=== PATIENT | female | born 2000 | race Caucasian/White ===

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

== ENCOUNTER → 2019-01-12 10:20 | Outpatient (CLI) | payer OTHER, SELFPAY ==
[2019-01-12 12:32] LABS: Internal QC Validated? YES +Cl - CLEAR BKGD; Pregnancy, Urine Negative Negative
== END ==
PROVIDERS: Family Provider Family Medicine; PCP Family Medicine; Referring Provider Physician Assistant Medical; Visit Provider Physician Assistant Medical
DX: L70.0 Acne vulgaris (principal); Z79.899 Other long term (current) drug therapy
CPT/HCPCS: 81025

== ENCOUNTER → 2019-02-23 11:03 | Outpatient (CLI) | payer OTHER, SELFPAY ==
[2019-02-23 12:43] LABS: Internal QC Validated? YES +Cl - CLEAR BKGD; Pregnancy, Urine Negative Negative
== END ==
PROVIDERS: Family Provider Family Medicine; PCP Family Medicine; Referring Provider Physician Assistant Medical; Visit Provider Physician Assistant Medical
DX: L70.0 Acne vulgaris (principal)
CPT/HCPCS: 81025

== ENCOUNTER → 2022-10-18 | Outpatient (CLI) | payer OTHER, SELFPAY ==
[2022-10-21 11:08] LABS: Chlamydia By Nucleic Acid AMP Negative (Negative); Gonococcus By Nucleic Acid AMP Negative (Negative)
[2022-10-23 11:28] LABS: HPV Reflexed? YES, CHARGE PATIENT
== END | disposition home or self-care (01) ==
PROVIDERS: PCP Family Medicine; Referring Provider Nurse Practitioner Women's Health; Visit Provider Nurse Practitioner Women's Health
DX: Z12.4 Encounter for screening for malignant neoplasm of cervix (principal); Z11.3 Encounter for screening for infections with a predominantly sexual mode of transmission
CPT/HCPCS: 87491; 87591; 87624; 88175; G0145

== ENCOUNTER → 2024-10-22 | Outpatient (CLI) | payer OTHER, SELFPAY ==
--- OUTSIDE RECORDS SUMMARY | 2024-10-22 09:24 | XMS RPT_ITS | CCD ---
Author Organization [facility] ion Partnership [facility] Care Team Providers Care Cmo Name Role Phone Dr. Ko Casey Primary Care Provider [phone] Dr. Ko Casey Referring Provider [phone] DANGELO Cuenca NP Attending Provider [phone] Unique Cuenca NP Attending Unavailable Ko Casey Referring Unavailable Ko Casey Primary Care Unavailable Dr. Ko Casey DO Primary Care Provider Dr. Ko Casey DO Referring Provider [phone] Bang LONDONO-CUnique Attending Provider Medications Current Medications Medication Drug Class(es) Dates Sig (Normalized) Sig (Original) Cataract (Nk) (1 source) Start: 10-05-2023 Cataract (Nk) A ctive October 05, 2023 12:00am Completed/Discontinued Medications Medication Drug Class(es) Dates Sig (Normalized) Sig (Original) copper 313 mg drug implant (2 sources) Copper-containing Intrauterine Device Start: 10-18-2022 End: 10-05-2023 Copper (Paragard T 380a) 380 square mm intrauterine device Discontinued 1 NMA INTRA-UTER ONCE October 18, 2022 12:00am October 05, 2023 9:44am as a single dose Start: 10-18-2022 Copper (Paraga rd T 380a) 380 square mm intrauterine device Active 1 DEVICE INTRA-UTER ONCE October 18, 2022 12:00am as a single dose fluconazole 150 mg oral tablet (2 sources) Azole Antifungal Start: 10-18-2022 End: 10-05-2023 take 1 tablet by mouth once Fluconazole 150 mg tablet Discontinued 150 mg PO ONCE 1 October 18, 2022 12:00am October 05, 2023 9:45am as a single dose Problems Problem Classification Problem Date Documented Da te Episodic/Chronic Contraceptive and procreative management (2 sources) Intrauterine contraceptive device in situ; Translations: [Presence of (intrauterine) contraceptive device] 10-18-2022 Episodic Immunizations and screening for infectious disease (1 source) Contact with and (suspected) exposure to infections with a predominantly sexual mode of transmission; Translations: [Contact with or exposure to venereal diseases] 10-18-2022 Episodic Mycoses (1 source) Candidiasis of vagina; Translations: [Anogenital candidiasis in female] 10-18-2022 Episodic Results Test Name Value Interpretation Reference Range Facility Human Resources Project Coordinator Office Visit Reporton 10-17-2024 Human Resources Project Coordinator Office Visit Report 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: No Is patient in pain?: No Allergies No Known Allergies Allergy (Verified 10/17/24 14:41) Medications ???Medication ???Instructions ???Recorded ???Confirmed ???Type NK 10/05/23 10/17/24 History Is last menstrual period known: Yes Last Menstrual Period: 10/02/24 Post menopausal: No Patient : No : No PFSH Family History Grandfather Myocardial infarction Hypertension Grandmother CVA (cerebral vascular accident) Social History Smoking Status: Never smoker alcohol intake: current alcohol intake frequency: holidays/special occasions only substance use type: does not use what type of physical activity do you participate in: weight training frequency: 5-6 times per week HPI Encounter for routine gynecological examination Details: DANNA IBRAHIM is a 24 year old who presents for annual exam. No contraception X 1 year. with her today. Unsure if they want to pursue further infertility yet. She is having menses every 28-35 days. They have been more sexually active with + LH strips but doesn't always get a positive test. Neither of them have had other pregnancies. Last PAP: 2022 History of abnormal PAP: no Last mammogram: age 34 Colon cancer screening: age 44 Female Reproductive History Last Menstrual Period: 10/02/24 Questions: metorrhagia: No, sexually active: Yes, dyspareunia: No and PCB: No ROS Const Constitutional: Denies fatigue, weight gain or weight loss Cardio Card: Denies chest pain Resp Resp: Denies cough or dyspnea on exertion GI GI: Denies abdominal pain, bloating, change in stool character, constipation or vomiting : Reports as per HPI; Denies difficulty voiding, pelvic pain, urinary frequency, urinary incontinence, urinary urgency, vaginal discharge or vaginal pruritus Exam Const General: cooperative, healthy appearing, no acute distress and well developed Orientation: alert, oriented to person and oriented to place [facility] Head: normal to inspection Neck Neck: normal visual inspection Thyroid: thyroid normal Lymphatic: no lymphadenopathy noted Chest Breast inspection: normal inspection of the breasts and normal inspection of the axillae Breast palpation: normal palpation of the breasts, normal palpation of the axillae and no axillary lymphadenopathy Resp Effort Inspection: normal respiratory effort GI Palpation: soft, no masses and nontender Rectal Exam: deferred External Female Exam: normal external appearance and normal appearance of the urethra Urethra: normal appearance of the urethra and normal palpation Speculum Exam - Vagina: normal appearance of the vagina and normal vaginal discharge Speculum Exam - Cervix: normal appearance of the cervix Bimanual Exam- Vagina Uterus: normal bimanual exam, uterine size normal, uterine shape normal and non-tender Bimanual Exam- Adnexa, other: normal adnexae, no masses, normal and non-tender Pelvic Support: normal Neuro General: patient alert and patient oriented x3 Psych Affect: normal affect Coding Level of Care Code Off vis,est,prev 18-39yrs Diagnoses Encounter for gynecological examination with abnormal finding Z01.411 Gynecological examination findings: abnormal findings PRESENT Pre-conception counseling Z31.69 Assessment and Plan Assessment and Plan (1) Encounter for routine gynecological examination: Qualifiers: Gynecological examination findings: abnormal findings PRESENT Qualified Code(s): Z01.411 - Encounter for gynecological examination (general) (routine) with abnormal findings (2) Pre-conception counseling: Status: Acute Comment: day 21 progesterone. If normal, get SA. Unsure if wants to pursue yet. Plan Completed breast and pelvic exam Reviewed diet and exercise Pap 2022 We discuss optimal time for conception, may ovulate later with menses at 35 days. She will do day 21 progesterone but they are unsure if they are ready to proceed with any further testing yet. We discussed if normal P21, will then do semen analysis and follow with [facility], day 3 labs. breast self exam encouraged monthly RTO 1 year, prn with problems Unique Cuenca ASSISTANT SPA MANAGER (more content not included)... Normal [facility] Cervical or vagninal specime n microscopic examination by cytology stain (reported asOrdered By: Unique Cuenca on 10-18-2022 Cytology report Cyto stain Doc (Cvx/Vag) Comment . [facility] Comment on above: The Pap smear is a s creening test designed to aid in thedetection of premalignant and malignant conditions of theuterine cervix. It is not a diagnostic procedure andshould not be used as the sole means of detecting cervicalcancer. Both false-positive and false-negative reports dooccur. Chlamydia trachomatis rRNA d etection by probe and target amplification methodOrdered By: Unique Cuenca on 10-18-2022 C. trachomatis rRNA EILEEN+probe Ql (Unsp spec) Negative Negative [facility] Laboratory - CytologyOrdered By: Unique Cuenca on 10-18-2022 Needleworker Cyto stain Nom (Cvx/Vag) [ID] Comment . [facility] Comment on above: Sweetie Angeles Hedge Trimmer (ASCP) Laboratory - Microbiology an d Antimicrobial susceptibilityOrdered By: Unique Cuenca on 10-18-2022 N. gonorrhoeae DNA EILEEN+probe Ql (Unsp spec) Negative Negative [facility] Comment on above: Performed at: =G - [facility] [address] [id number] Director: Wendy Trotter MD, Phone: [phone] Laboratory - Miscellaneous t estsOrdered By: Unique Cuenca on 10-18-2022 Service comment (Unsp spec) [Interp] Comment . [facility] Comment on above: This liquid based Th inPrep(R) pap test was screened withthe use of an image guided system. Service comment (Unsp spec) [Interp] . . [facility] No Panel InformationOrdered By: Unique Cuenca on 10-18-2022 Human Papillomavirus Screen Comment . [facility] Comment on above: The HPV DNA reflex c jacek were not met with this specimenresult therefore, no HPV testing was performed.Performed at: [facility] - [facility] [address] [id number] Director: Wendy Trotter MD, Phone: [phone] Pathology report final diagnosis Narrative Comment . [facility] Comment on above: NEGATIVE FOR INTRAEP ITHELIAL LESION OR MALIGNANCY.FUNGAL ORGANISMS MORPHOLOGICALLY CONSISTENT WITH WINSTON SPECIES AREPRESENT.CELLULAR CHANGES ASSOCIATED WITH INFLAMMATION ARE PRESENT. No Panel Informationon 10-18 POC Trichomonas (Rapid) Negative [facility] Vital Signs Date Time Vital Sign Value Performing Clinician Cyn owen 10-17-2024 14:46-0400 Body height 149.[address] Ko Casey DO Work Phone: [facility] 10-17-2024 14:42-0400 Body mass index (BMI) [Ratio] 22.1 kg/m2 Dr. Ko Casey DO Work Phone: [facility] 10-17-2024 14:42-0400 Body weight 49.[address] Ko Casey DO Work Phone: [facility] 10-17-2024 14:42-0400 Diastolic blood pressure 82 mm[Hg] Dr. Ko Casey DO Work Phone: [facility] 10-17-2024 14:42-0400 Systolic blood pressure 140 mm[Hg] Dr. Ko Casey DO Work Phone: [facility] 10-18-2022 14:49-0400 Body height 149.[address] Ko Casey Work Phone: [facility] 10-18-2022 14:49-0400 Body mass index (BMI) [Ratio] 21.7 kg/m2 Dr. Ko Casey Work Phone: [facility] 10-18-2022 14:49-0400 Body weight 48.[address] Ko Casey Work Phone: [facility] 10-18-2022 14:49-0400 Diastolic blood pressure 80 mm[Hg] Dr. Ko Casey Work Phone: [facility] 10-18-2022 14:49-0400 Systolic blood pressure 138 mm[Hg] Dr. Ko Casey Work Phone: [facility] Encounters Encounter Date Encounter Type Care Provider Facility Start: 10-17-2024 End: 10-17-2024 Patient encounter procedure Unique Cuenca SHOVEL HANDLE ASSEMBLER-C -[facility] Work Phone: Start: 10-17-2024 End: 10-17-2024 Patient encounter status Unique Bang SHOVEL HANDLE ASSEMBLER-C [facility] Start: 10-17-2024 End: 10-17-2024 ambulatory Unique Cuenca SHOVEL HANDLE ASSEMBLER [place] [place] Start: 10-18-2022 End: 10-18-[address] Ko Casey Work Phone: [facility] Work Phone: Start: 10-18-2022 End: 10-18-[address] Ko Casey Work Phone: [facility] Plan of Treatment Date Care Activity Detail Author Start: 10-18-2022 Liquid based cervica l cytology screening [facility] Payers Date Payer Category Payer Private Health Insurance [id number] Self-pay [id number] Unknown [facility] [id number] Unknown [facility] [id number] Unknown [facility] [id number] Unknown [id number] Social History Date Type Detail Facility Start: 10-18-2022 Tobacco smoking stat [facility] Unknown if ever smoked [facility] Start: 2000 Sex Assigned At Female [facility] Start: 10-18-2022 Tobacco smoking stat [facility] Never smoked tobacco (finding) [facility] Clinical Note 10-18-2022 Note Date & Type Note Facility 10-18-2022 Note [facility] Pap Smear Specimen Adequacy October 18, 2022 3:47pm Comment . Satisfactory for evaluation. Endocervical and/or squamous metaplasticcells (endocervical component) are present. Comment on above: Satisfactory for gavi luation. Endocervical and/or squamous metaplasticcells (endocervical component) are present. Evaluation note Note Date & Type Note Facility Evaluation note Diagnosis Onset Date IUD (intrauterine device) in place acute Possible exposure to STD non eactive Encounter for routine gyneco logical examination noneactive Monilial vaginitis noneactiv e [facility] Work Phone: Evaluation note Note Date & Type Note Facility Evaluation note Diagnosis Onset Date Resolution Encounter for routine gynecological examination noneactive October 17, 2024 2:27pm [facility] Work Phone: Reason for referral (narrative) Note Date & Type Note Facility Reason for referral (narrative) No reason for referral information available [facility] Work Phone: Chief Complaint and Reason for Visit 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) 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 FOR SCREENING FOR INFECTIONS WITH A PRED Reason for Visit IUD (intrauterine de vice) in place Possible exposure to STD Encounter for routine gynecological examination Monilial vaginitis Chief Complaint Admit Date 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 Ko Casey DO Family Provider Active Dr. Ko Casey DO Primary Care Provider Active Team Status: Inactive Member Role Status Dates Dr. Ko Casey DO Primary Care Provider, Referr ing Provider Active Unique Cuenca SHOVEL HANDLE ASSEMBLER, SHOVEL HANDLE ASSEMBLER-C Attending Provider Active Team Status: Inactive Member Role Status Dates Dr. Ko Casey , DO Primary Care Provider Active Unique Cuenca SHOVEL HANDLE ASSEMBLER, SHOVEL HANDLE ASSEMBLER-C Attending Provider, Referring Provider Active Team Status: Active Member Role Status Dates Dr. Ko Casey DO Primary Care Provider Active Team Status: Inactive Member Role Status Dates Dr. Ko Casey DO Primary Care Provider Active Start: October 17, 2024 End: October 17, 2024 Dr. Ko Casey DO Referring Provider Active Start: October 17, 2024 End: October 17, 2024 Unique Cuenca SHOVEL HANDLE ASSEMBLER, SHOVEL HANDLE ASSEMBLER-C Attending Provider Active Start: October 17, 2024 End: October 17, 2024 Goals (unrecognized section and content) Goals may be documented in a n alternate sectionGoals may be documented in an alternate section INFORMATION SOURCE (unrecogn ized section and content) DATE CREATED AUTHOR 10/18/2024 [facility] FOR RECORDS PERTAINING TO PATIENTS WHO ARE OR HAVE BEEN ENROLLED IN A CHEMICAL DEPENDENCY/SUBSTANCEABUSE PROGRAM, SOME INFORMATION MAY BE OMITTED. This clinical summary was aggregated from multiple sources. Caution should be exercised in using it in the provision of clinical care. This summary normalizes information from multiple sources, and as a consequence, information in this document may materially change the coding, format and clinical context of patient data. In addition, data may be omitted in some cases. CLINICAL DECISIONS SHOULD BE BASED ON THE PRIMARY CLINICAL RECORDS. [employer] [facility]. provides no warranty or guarantee of the accuracy or completeness of information in this document.
== END | disposition home or self-care (01) ==
PROVIDERS: Nurse Practitioner Women's Health; PCP Family Medicine; Referring Provider Advanced Practice Midwife; Visit Provider Advanced Practice Midwife
DX: N97.9 Female infertility, unspecified (principal)
CPT/HCPCS: 36415; 84144

== ENCOUNTER → 2025-02-12 | Outpatient (CLI) | payer SELFPAY ==
[2025-02-12 19:57] LABS: hCG Titer Quant., Serum 1892 mIU/mL (<9 non-preg)
--- OUTSIDE RECORDS SUMMARY | 2025-02-14 20:59 | XMS RPT_ITS | CCD ---
Author Organization [facility] Care Team Providers Care Nicker Name Role Phone Dr. Ko Casey Primary Care Provider [phone] Dr. Ko Casey Referring Provider [phone] Bang DIRECTOR OF ONLINE EDUCATION, ROLANC Unique Attending Provider [phone] Dr. Ko Casey DO Primary Care Provider Dr. Ko Casey DO Referring Provider [phone] Bang LONDONO-CUnique Attending Provider [phone] Wendy Patiño CNM Attending Provider [phone] Wendy Patiño CNM Referring Provider [phone] Unique Cuenca NP Attending Unavailable Ko Casey Referring Unavailable Ko Casey Primary Care Unavailable Ko Casey Primary Care Unavailable Wendy Patiño Referring Unavailable Wendy Patiño Attending Unavailable Medications Current Medications Medication Drug Class(es) Dates Sig (Normalized) Sig (Original) Mogollon (Nk) (2 sources) Start: 10-05-2023 [place] (Nk) A ctive October 05, 2023 12:00am Completed/Discontinued Medications Medication Drug Class(es) Dates Sig (Normalized) Sig (Original) copper 313 mg drug implant (3 sources) Copper-containing Intrauterine Device Start: 10-18-2022 End: [...] single dose fluconazole 150 mg oral tablet (3 sources) Azole Antifungal Start: 10-18-2022 End: 10-05-2023 take 1 tablet by mouth once Fluconazole 150 mg tablet Discontinued 150 mg PO ONCE 1 October 18, 2022 12:00am October 05, 2023 9:45am as a single dose Problems Problem Classification Problem Date Documented Date Episodic/Chronic Contraceptive and procreative management (4 sources) Intrauterine contraceptive device in situ; Translations: [Presence of (intrauterine) contraceptive device] 10-18-2022 Episodic Comment on above: day 21 progesterone. If normal, get SA. Unsure if wants to pursue yet. Female infertility (1 source) Female infertility, unspecified; Translations: [Female infertility, unspecified] Onset: 10-25-2024 Chronic Immunizations and screening for infectious disease (1 source) Contact with and (suspected) exposure to infections with a predominantly sexual mode of transmission; Translations: [Contact with or exposure to venereal diseases] 10-18-2022 Episodic Mycoses (1 source) Candidiasis of vagina; Translations: [Anogenital candidiasis in female] 10-18-2022 Episodic Results Test Name Value Interpretation Reference Range Facility PROGESTERONE 4317on 10-24-19 25 PROGESTERONE 11.0 ng/mL Normal . [facility] Comment on above: Order Comment: N Result Comment: Foll icular phase 0.1 - 0.9 Luteal phase 1.8 - 23.9 Ovulation phase 0.1 - 12.0 First trimester 11.0 - 44.3 Second trimester 25.4 - 83.3 Third trimester 58.7 - 214.0 Postmenopausal 0.0 - 0.1 Performed at: [facility] Lab[address] [id number] Roller Inspector: Jacob Rick PhD, Phone: [phone] Performed By: #### L [id number] #### [facility] Laboratory [address] 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 Normal [facility] Cervical or vagninal specime n microscopic examination by cytology stain (reported asOrdered By: Unique Cuenca on 10-18-2022 Cytology report Cyto stain Doc (Cvx/Vag) Comment . [facility] Comment on above: The Pap smear [...] rRNA EILEEN+probe Ql (Unsp spec) Negative Negative [facility] Laboratory - CytologyOrdered By: Unique Cuenca on 10-18-2022 Environment Artist Cyto stain Nom (Cvx/Vag) [ID] Comment . [facility] Comment on above: Sweetie Angeles Tie Sawyer (ASCP) Laboratory - Microbiology an d Antimicrobial susceptibilityOrdered By: Unique Cuenca on 10-18-2022 N. gonorrhoeae DNA EILEEN+probe Ql (Unsp spec) Negative Negative [facility] Comment on above: Performed at: =G - [facility] [address] [id number] Director: Wendy Trotter MD, Phone: [phone] Laboratory - Miscellaneous t estsOrdered By: Unique Cuenca on 10-18-2022 Service comment (Unsp spec) [Interp] Comment . [facility] Comment on above: This liquid based Th inPrep(R) pap test was screened withthe use of an image guided system. Service comment (Unsp spec) [Interp] . . [facility] No Panel InformationOrdered By: Unique Cuenca on 10-18-2022 Human Papillomavirus Screen Comment . [facility] Comment on above: The HPV DNA reflex c jacek were not met with this specimenresult therefore, no HPV testing was performed.Performed at: - [facility] [address] [id number] Director: Wendy Trotter MD, Phone: [phone] Pathology report final diagnosis Narrative Comment . [facility] Comment on above: NEGATIVE FOR INTRAEP ITHELIAL LESION OR MALIGNANCY.FUNGAL ORGANISMS MORPHOLOGICALLY CONSISTENT WITH WINSTON SPECIES AREPRESENT.CELLULAR CHANGES ASSOCIATED WITH INFLAMMATION ARE PRESENT. No Panel Informationon 10-18 POC Trichomonas (Rapid) Negative [facility] Vital Signs Date Time Vital Sign Value Performing Clinician Jayi lity 10-17-2024 14:46-0400 Body height 149.[address] Ko Casey DO Work Phone: [facility] 10-17-2024 14:42-0400 Body mass index (BMI) [Ratio] 22.1 kg/m2 Dr. Ko Casey DO Work Phone: [facility] 10-17-2024 14:42-0400 Body weight 49.[address] Ko Casey DO Work Phone: [facility] 10-17-2024 14:42-0400 Diastolic blood pressure 82 mm[Hg] Dr. Ko Casey DO Work Phone: [facility] 10-17-2024 14:42-0400 Systolic blood pressure 140 mm[Hg] Dr. Ko Casey DO Work Phone: [facility] 10-18-2022 14:49-0400 Body height 149.[address] Ko Casey Work Phone: [facility] 10-18-2022 14:49-0400 Body mass index (BMI) [Ratio] 21.7 kg/m2 Dr. Ko Casey Work Phone: [facility] 10-18-2022 14:49-0400 Body weight 48.[address] Ko Casey Work Phone: [facility] 10-18-2022 14:49-0400 Diastolic blood pressure 80 mm[Hg] Dr. Ko Casey Work Phone: [facility] 10-18-2022 14:49-0400 Systolic blood pressure 138 mm[Hg] Dr. Ko Casey Work Phone: [facility] Encounters Encounter Date Encounter Type Care Provider Facility Start: 10-22-2024 End: 10-22-[address] Ko Casey DO Work Phone: [facility] Work Phone: Start: 10-22-2024 End: 10-22-2024 Patient encounter procedure Wendy Haroon CNM -Lab [facility] Start: 10-22-2024 End: 10-22-2024 ambulatory Ko Casey Facility:[facility] Start: 10-17-2024 End: 10-17-2024 Patient encounter procedure Unique Cuenca DIRECTOR OF ONLINE EDUCATION-C -[facility] Work Phone: Start: 10-17-2024 End: 10-17-2024 Patient encounter status Unique Cuenca DIRECTOR OF ONLINE EDUCATION-C [facility] Start: 10-17-2024 End: 10-17-[address] Ko Casey DO Work Phone: [facility] Work Phone: Start: 10-18-2022 End: 10-18-[address] Ko Casey Work Phone: [facility] Work Phone: Start: 10-18-2022 End: 10-18-[address] Ko Casey Work Phone: [facility] Procedures Date Procedure Procedure Detail Performing Clinician Start: 10-22-[address] Ko Casey DO Work Phone: Comment on above: Follicular phase 0.1 - 0.9 Luteal phase 1.8 - 23.9 Ovulation phase 0.1 - 12.0 First trimester 11.0 - 44.3 Second trimester 25.4 - 83.3 Third trimester 58.7 - 214.0 Postmenopausal 0.0 - 0.1Performed at: [facility] [place], [place] [id number] Director: Jacob Rick PhD, Phone: [phone] Plan of Treatment Date Care Activity Detail Author Start: 10-18-2022 Liquid based cervica l cytology screening [facility] Payers Date Payer Category Payer Private Health Insurance [id number] 2024 Self-pay [id number] Unknown [employer] [id number] Unknown [facility] [id number] Unknown [facility] [id number] Unknown [id number] Unknown [id number] Social History Date Type Detail Facility Start: 10-18-2022 Tobacco smoking stat [facility] Unknown if ever smoked [facility] Start: 2000 Sex Assigned At Female [facility] Start: 10-18-2022 Tobacco smoking stat [facility] Never smoked tobacco (finding) [facility] Evaluation note 10-17-2024 Note Date & Type Note Facility 10-17-2024 Evaluation note Diagnosis Onset Date Resolution Pre-conception counseling acute October 17, 2024 2:27pm Encounter for routine gynecological examination noneactive October 17, 2024 2:27pm [facility] Work Phone: Clinical Note 10-18-2022 Note Date & Type Note Facility 10-18-2022 Note [facility] Pap Smear Specimen Adequacy October 18, [...] logical examination noneactive Monilial vaginitis noneactiv e [facility] Work Phone: Evaluation note Note Date & Type Note Facility Evaluation note Diagnosis Onset Date Resolution Encounter for routine gynecological examination noneactive October 17, 2024 2:27pm [facility] Work Phone: Reason for referral (narrative) Note Date & Type Note Facility Reason for referral (narrative) No reason for referral information available [facility] Work Phone: Chief Complaint and Reason for Visit 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, 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 Ko Casey DO Primary Care Provider Active Unique Cuenca DIRECTOR OF ONLINE EDUCATION, DIRECTOR OF ONLINE EDUCATION-C Attending Provider, Referring Provider Active Team Status: Active Member Role Status Dates Dr. Ko Casey DO Primary Care Provider Active Team Status: Inactive Member Role Status Dates Dr. Ko Casey DO Primary Care Provider Active Start: October 17, 2024 End: October 17, 2024 Dr. Ko Casey DO Referring Provider Active Start: October 17, 2024 End: October 17, 2024 Unique Cuenca DIRECTOR OF ONLINE EDUCATION, DIRECTOR OF ONLINE EDUCATION-C Attending Provider Active Start: October 17, 2024 End: October 17, 2024 Team Status: Inactive Member Role Status Dates Dr. Ko Casey DO Primary Care Provider Active Start: October 22, 2024 End: October 22, 2024 Wendy Patiño CNM Attending Provider Active S tart: October 22, 2024 End: October 22, 2024 Wendy Patiño CNM Referring Provider Active S tart: October 22, 2024 End: October 22, 2024 Goals (unrecognized section and content) Goals may be documented in a n alternate sectionGoals may be documented in an alternate sectionGoals may be documented in an alternate section INFORMATION SOURCE (unrecogn ized section and content) DATE CREATED AUTHOR 10/28/2024 [facility] FOR RECORDS PERTAINING TO PATIENTS [...] BE BASED ON THE PRIMARY CLINICAL RECORDS. [employer] provides no warranty or guarantee of the accuracy or completeness of information in this document.
== END | disposition home or self-care (01) ==
LOC: LAB 18:27
PROVIDERS: Nurse Practitioner Women's Health; PCP Family Medicine; Referring Provider Advanced Practice Midwife; Visit Provider Advanced Practice Midwife
DX: O26.859 Spotting complicating pregnancy, unspecified trimester (principal); Z3A.00 Weeks of gestation of pregnancy not specified
CPT/HCPCS: 36415; 84702

== ENCOUNTER → 2025-02-14 | Outpatient (CLI) | payer SELFPAY ==
[2025-02-14 20:00] LABS: hCG Titer Quant., Serum 2068 mIU/mL (<9 non-preg)
== END | disposition home or self-care (01) ==
LOC: LAB 18:19
PROVIDERS: Obstetrics & Gynecology; PCP Family Medicine; Visit Provider Advanced Practice Midwife
DX: O26.859 Spotting complicating pregnancy, unspecified trimester (principal); Z3A.00 Weeks of gestation of pregnancy not specified
CPT/HCPCS: 36415; 84702

== ENCOUNTER → 2025-02-16 | Outpatient (CLI) | payer SELFPAY ==
--- OUTSIDE RECORDS SUMMARY | 2025-02-16 18:50 | XMS RPT_ITS | CCD ---
Author Organization [facility] Care Team Providers Care Clinical Trials Assistant Name Role Phone Dr. Ko Casey Primary Care Provider [phone] Dr. Ko Casey Referring Provider [phone] Bang SUPERVISOR WIRE ROPE FABRICATION, ROLANC Unique Attending Provider [phone] Dr. Ko Casey DO Primary Care Provider [phone] Dr. Ko Casey DO Referring Provider [phone] Bang LONDONO-CUnique Attending Provider Wendy Patiño CNM Attending Provider [phone] Wendy Patiño CNM Referring Provider [phone] Unique Cuenca NP Attending Unavailable Ko Casey Referring Unavailable Ko Casey Primary Care Unavailable Ko Casey Primary Care Unavailable Wendy Patiño Referring Unavailable Wendy Patiño Attending Unavailable Medications Current Medications Medication Drug Class(es) Dates Sig (Normalized) Sig (Original) [place]is (Nk) (2 sources) Start: 10-05-2023 [place] (Nk) A ctive October 05, 2023 12:00am [...] 10-24-19 25 PROGESTERONE 11.0 ng/mL Normal . [facility] Comment on above: Order Comment: N Result Comment: Foll icular phase 0.1 - 0.9 Luteal phase 1.8 - 23.9 Ovulation phase 0.1 - 12.0 First trimester 11.0 - 44.3 Second trimester 25.4 - 83.3 Third trimester 58.7 - 214.0 Postmenopausal 0.0 - 0.1 Performed at: [facility] Lab[address] [id number] General Internal Medicine Doctor: Jacob Rick PhD, Phone: [phone] Performed By: #### L [id number] #### [facility] [address] 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 Normal [facility] Cervical or vagninal specime n microscopic examination by cytology stain (reported asOrdered By: Unique Cuenca on 10-18-2022 Cytology report Cyto stain Doc (Cvx/Vag) Comment . [facility] Comment on above: The Pap smear [...] rRNA EILEEN+probe Ql (Unsp spec) Negative Negative [facility] Laboratory - CytologyOrdered By: Unique Cuenca on 10-18-2022 Aeronautical Engineering Professor Cyto stain Nom (Cvx/Vag) [ID] Comment . [facility] Comment on above: Sweetie Angeles Learning Support Assistant (ASCP) Laboratory - Microbiology an d Antimicrobial susceptibilityOrdered By: Unique Cuenca on 10-18-2022 N. gonorrhoeae DNA EILEEN+probe Ql (Unsp spec) Negative Negative [facility] Comment on above: Performed at: =G - [facility] [address] [id number] Director: Wendy Trotter MD, Phone: [phone] Laboratory - Miscellaneous t estsOrdered By: Unique Cuenca on 10-18-2022 Service comment (Unsp spec) [Interp] Comment . [facility] Comment on above: This liquid based Th inPrep(R) pap test was screened withthe use of an image guided system. Service comment (Unsp spec) [Interp] . . [facility] No Panel InformationOrdered By: Unique Cuenca on 10-18-2022 Human Papillomavirus Screen Comment . [facility] Comment on above: The HPV DNA reflex c jacek were not met with this specimenresult therefore, no HPV testing was performed.Performed at: - [facility] [address] [id number] Director: Wendy Trotter MD, Phone: [phone] Pathology report final diagnosis Narrative Comment . [facility] Comment on above: NEGATIVE FOR INTRAEP ITHELIAL LESION OR MALIGNANCY.FUNGAL ORGANISMS MORPHOLOGICALLY CONSISTENT WITH WINSTON SPECIES AREPRESENT.CELLULAR CHANGES ASSOCIATED WITH INFLAMMATION ARE PRESENT. No Panel Informationon 10-18 POC Trichomonas (Rapid) Negative [facility] Vital Signs Date Time Vital Sign Value Performing Clinician Jayi lity 10-17-2024 14:46-0400 Body height 149.[address] Ko Casey DO Work Phone: [facility] 10-17-2024 14:42-0400 Body mass index (BMI) [Ratio] 22.1 kg/m2 Dr. Ko Casey DO Work Phone: [facility] 10-17-2024 14:42-0400 Body weight 49.[address] Ko Casey DO Work Phone: [facility] 10-17-2024 14:42-0400 Diastolic blood pressure 82 mm[Hg] Dr. Ko Casey DO Work Phone: [facility] 10-17-2024 14:42-0400 Systolic blood pressure 140 mm[Hg] Dr. Ko Casey DO Work Phone: [facility] 10-18-2022 14:49-0400 Body height 149.[address] Ko Casey Work Phone: [facility] 10-18-2022 14:49-0400 Body mass index (BMI) [Ratio] 21.7 kg/m2 Dr. Ko Casey Work Phone: [facility] 10-18-2022 14:49-0400 Body weight 48.[address] Ko Casey Work Phone: [facility] 10-18-2022 14:49-0400 Diastolic blood pressure 80 mm[Hg] Dr. Ko Casey Work Phone: [facility] 10-18-2022 14:49-0400 Systolic blood pressure 138 mm[Hg] Dr. Ko Casey Work Phone: [facility] Encounters Encounter Date Encounter Type Care Provider Facility Start: 10-22-2024 End: 10-22-[address] Ko Casey DO Work Phone: [facility] Work Phone: Start: 10-22-2024 End: 10-22-2024 Patient encounter procedure Wendy Haroon CNM -Lab [facility] Start: 10-22-2024 End: 10-22-2024 ambulatory Ko Casey Facility:[facility] Start: 10-17-2024 End: 10-17-2024 Patient encounter procedure Unique Cuenca SUPERVISOR WIRE ROPE FABRICATION-C -[facility] Work Phone: Start: 10-17-2024 End: 10-17-2024 Patient encounter status Unique Cuenca SUPERVISOR WIRE ROPE FABRICATION-C [facility] Start: 10-17-2024 End: 10-17-[address] Ko Casey DO Work Phone: [facility] Work Phone: Start: 10-18-2022 End: 10-18-[address] Ko Casey Work Phone: [facility] Work Phone: Start: 10-18-2022 End: 10-18-[address] Ko Casey Work Phone: [facility] Procedures Date Procedure Procedure Detail Performing Clinician Start: 10-22-[address] Ko Casey DO Work Phone: Comment on above: Follicular phase 0.1 - 0.9 Luteal phase 1.8 - 23.9 Ovulation phase 0.1 - 12.0 First trimester 11.0 - 44.3 Second trimester 25.4 - 83.3 Third trimester 58.7 - 214.0 Postmenopausal 0.0 - 0.1Performed at: [facility] [place], [place] [id number] Director: Jacob Rick PhD, Phone: [phone] Plan of Treatment Date Care Activity Detail Author Start: 10-18-2022 Liquid based cervica l cytology screening [facility] Payers Date Payer Category Payer Private Health Insurance [id number] 2024 Self-pay [id number] Unknown [employer] [id number] Unknown [facility] [id number] Unknown [facility] [id number] Unknown [id number] Unknown [id number] Social History Date Type Detail Facility Start: 10-18-2022 Tobacco smoking stat [facility] Unknown if ever smoked [facility] Start: 2000 Sex Assigned At Female W [facility] Start: 10-18-2022 Tobacco smoking stat [facility] Never smoked tobacco (finding) [facility] Evaluation note 10-17-2024 Note Date & Type Note Facility 10-17-2024 Evaluation note Diagnosis Onset Date Resolution Pre-conception counseling acute October 17, 2024 2:27pm Encounter for routine gynecological examination noneactive October 17, 2024 2:27pm [facility] Work Phone: Clinical Note 10-18-2022 Note Date & Type Note Facility 10-18-2022 Note [facility] Pap Smear Specimen Adequacy October 18, [...] logical examination noneactive Monilial vaginitis noneactiv e [facility] Work Phone: Evaluation note Note Date & Type Note Facility Evaluation note Diagnosis Onset Date Resolution Encounter for routine gynecological examination noneactive October 17, 2024 2:27pm [facility] Work Phone: Reason for referral (narrative) Note Date & Type Note Facility Reason for referral (narrative) No reason for referral information available [facility] Work Phone: Chief Complaint and Reason for Visit 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 Ko Casey DO Primary Care Provider Active Unique Cuenca SUPERVISOR WIRE ROPE FABRICATION, SUPERVISOR WIRE ROPE FABRICATION-C Attending Provider, Referring Provider Active Team Status: Active Member Role Status Dates Dr. Ko Casey DO Primary Care Provider Active Team Status: Inactive Member Role Status Dates Dr. Ko Casey DO Primary Care Provider Active Start: October 17, 2024 End: October 17, 2024 Dr. Ko Casey DO Referring Provider Active Start: October 17, 2024 End: October 17, 2024 Unique Cuenca SUPERVISOR WIRE ROPE FABRICATION, SUPERVISOR WIRE ROPE FABRICATION-C Attending Provider Active Start: October 17, 2024 [...] section and content) DATE CREATED AUTHOR 10/28/2024 [facility] FOR RECORDS PERTAINING TO PATIENTS WHO ARE [...] BE BASED ON THE PRIMARY CLINICAL RECORDS. [employer] provides no warranty or guarantee of the accuracy or completeness of information in this document.
[2025-02-16 20:16] LABS: hCG Titer Quant., Serum 1969 mIU/mL (<9 non-preg)
== END | disposition home or self-care (01) ==
PROVIDERS: PCP Family Medicine; Visit Provider Obstetrics & Gynecology
DX: O26.859 Spotting complicating pregnancy, unspecified trimester (principal); Z3A.00 Weeks of gestation of pregnancy not specified
CPT/HCPCS: 36415; 84702

== ENCOUNTER → 2025-02-25 | Outpatient (CLI) | payer SELFPAY ==
[2025-02-25 17:32] LABS: hCG Titer Quant., Serum 32 mIU/mL (<9 non-preg)
== END | disposition home or self-care (01) ==
PROVIDERS: PCP Family Medicine; Visit Provider Advanced Practice Midwife
DX: O03.4 Incomplete spontaneous abortion without complication (principal)
CPT/HCPCS: 36415; 84702

== ENCOUNTER → 2025-03-04 | Outpatient (CLI) | payer SELFPAY ==
--- OUTSIDE RECORDS SUMMARY | 2025-03-04 18:30 | XMS RPT_ITS | CCD ---
Author Organization [facility] Care Team Providers Care Loan Secretary Name Role Phone Dr. Ko Casey Primary Care Provider [phone] Dr. Ko Casey Referring Provider [phone] ROLAN Cuenca NPC Unique Attending Provider [phone] Dr. Ko Casey DO Primary Care Provider Dr. Ko Casey DO Referring Provider [phone] Bang LONDONO-CUnique Attending Provider [phone] Wendy Patiño CNM Attending Provider [phone] Wendy Patiño CNM Referring Provider [phone] Dr. Ko Casey DO Primary Care Physician Wendy Patiño CNM Attending Physician [phone] Dr. Summer Vivar MD Attending Physician Dr. Ko Casey DO Referring Provider [phone] Dr. Yoselin Lowe DO Attending Physician Dr. Ko Casey DO Primary Care Physician Wendy Patiño CNM Attending Physician Wendy Patiño CNM Referring Provider [phone] Ko Casey Primary Care Unavailable Wendy Patiño Attending Unavailable Summer Vivar Attending Unavailable Ko Casey Primary Care Unavailable Wendy Patiño Attending Unavailable Ko Casey Referring Unavailable Ko Casey Primary Care Unavailable Ko Casey Primary Care Unavailable Ko Casey Referring Unavailable Unique Cuenca NP Attending Unavailable Yoselin Lowe Attending Unavailabl e Ko Casey R Referring Unavailable Glenn Caseylas R Primary Care Unavailable Wendy Patiño Attending Unavailable Wendy Patiño Referring Unavailable Ko Casey R Primary Care Unavailable Jacinto Ko R Primary Care Unavailable Wendy Patiño Attending Unavailable Wendy Patiño Attending Unavailable Wendy Patiño Referring Unavailable Glenn Caseylas R Primary Care Unavailable Medications Current Medications Medication Drug Class(es) Dates Sig (Normalized) Sig (Original) acetaminophen 325 mg / oxyCODONE hydrochloride 5 mg oral tablet (3 sources) Opioid Agonist Start: 02-18-2025 Oxycodone-Acetamino phen (Percocet) 5-325 mg tablet Active 1 {tbl} PO Q4H as needed for pain 7 3 0 February 18, 2024February 20, 2025 12:00am Spontaneous Complete or unspecified spontaneous without complication Complies with drug therapy Start: 02-18-2025 Oxycodone-Acet aminophen (Percocet) 5-325 mg tablet Active 1 {tbl} PO Q4H as needed for pain 7 3 0 February 18, 2024February 20, 2025 12:00am Spontaneous Complete or unspecified spontaneous without complication Complies with drug therapy docosahexaenoic acid 200 mg oral capsule (3 sources) Start: 02-18-2025 Docosahexaenoi c Acid ( Dha) 200 mg capsule Active mg PO February 18, 2025 12:00am Complies with drug therapy miSOPROStol 0.2 mg oral tablet (3 sources) Prostaglandin E1 Analog Start: 02-18-2025 Misoprostol (Cytotec ) 200 mcg tablet Active 600 ug VAGINAL ONCE 3 0 February 18, 2025 12:00am Complies with drug therapy March Arb (Nk) (2 sources) Start: 10-05-2023 March Arb (Nk) A ctive October 05, 2023 12:00am Completed/Discontinued Medications Medication Drug Class(es) Dates Sig (Normalized) Sig (Original) copper 313 mg drug implant (6 sources) Copper-containing Intrauterine Device Start: 10-18-2022 End: [...] single dose fluconazole 150 mg oral tablet (6 sources) Azole Antifungal Start: 10-18-2022 End: 10-05-2023 take 1 tablet by mouth once Fluconazole 150 mg tablet Discontinued 150 mg PO ONCE 1 0 October 18, 2022 12:00am October 05, 2023 9:45am as a single dose Problems Problem Classification Problem Date Documented Date Episodic/Chronic Contraceptive and procreative management (8 sources) Intrauterine contraceptive device in situ; Translations: [Presence of (intrauterine) contraceptive device] Onset: 02-25-2025 10-18-2022 Episodic Comment on above: day 21 [...] Translations: [Anogenital candidiasis in female] 10-18-2022 Episodic Other complications of (3 sources) Spotting per vagina in ; Translations: [Spotting complicating , unspecified trimester] 02-12-2025 Episodic Other complications of (2 sources) Spotting complicating , unspecified trimester; Translations: [Spotting complicating , unspecified trimester] Onset: 02-25-2025 Episodic Spontaneous (13 sources) Miscarriage; Translations: [Complete or unspecified spontaneous without complication] Onset: 02-25-2025 02-18-2025 Episodic Results Test Name Value Interpretation Reference Range Facility Dry Food Products Mixer Office Visit Reporton 02-25-2025 Dry Food Products Mixer Office Visit Report [facility] [address] [place] [address], [address] [place] [address] OFFICE VISIT Date of Service: 02/25/25 MR#: [id number] Acct: [id number] Name: DANNA IBRAHIM Rep #: [id number] : 2000 Provider: SHAAN Chang ams Age/Sex: 24/F [place] [facility] Status: Signed Intake Vital Signs 02/18/25 13:07 02/25/25 13:40 Height 4 ft 11 in 4 ft 11 in Weight: 109 lb 5 oz BMI 22.1 BP 129/83 H Intake Visit Reasons: MC F/U *ok per JV Chief Complaint: Miscarriage Follow Up Instructional Coordinator Required: No Is patient in pain?: No Allergies No Known Allergies Allergy (Verified 02/25/25 13:40) Medications ???Medication ???Instructions ???Recorded ???Confirmed ???Type docosahexaenoic acid 200 mg mg PO 02/18/25 02/25/25 History capsule ( DHA) Post menopausal: No Patient : No : No PFSH Family History Grandfather Myocardial infarction Hypertension Grandmother CVA (cerebral vascular accident) Social History Smoking Status: Never smoker alcohol intake: current alcohol intake frequency: holidays/special occasions only substance use type: does not use what type of physical activity do you participate in: weight training frequency: 5-6 times per week HPI MC F/U *ok per JV Details: DANNA IBRAHIM is a 24 year old who presents for SAB follow up. Had bleeding on tuesday-tuesday and took cytotec on - had some additional bleeding on then no additional bleeding. feeling good-HCG today. assisted with scan- and agrees all products are expelled. History 1 Elective abortions Hx Para 0 Spontaneous abortions Hx # Term Pregnancies Ectopic pregnancies Hx # Pregnancies Multiple births # of living children ROS Const Constitutional: Reports system reviewed and no additional complaints, except as documented Cardio Card: Reports system reviewed and no additional complaints, except as documented Resp Resp: Reports system reviewed and no additional complaints, except as documented GI GI: Reports system reviewed and no additional complaints, except as documented : Reports system reviewed and no additional complaints, except as documented; Denies difficulty voiding, dysuria or urinary frequency Skin Skin/Breast: Reports system reviewed and no additional complaints, except as documented Neuro Neuro: Reports system reviewed and no additional complaints, except as documented Psych Psych: Reports system reviewed and no additional complaints, except as documented Exam Const General: cooperative, healthy appearing, comfortable and no acute distress Resp Effort Inspection: normal respiratory effort, able to speak in complete sentences and symmetric chest movement GI Inspection: normal to inspection Palpation: soft External Female Exam: normal external appearance and normal appearance of the urethra Urethra: normal appearance of the urethra Speculum Exam - Vagina: normal appearance of the vagina Bimanual Exam- Adnexa, other: normal Pelvic Support: normal Neuro General: patient alert, patient awake and patient oriented x3 Cognition: normal cognition Speech: speech normal Gait: normal gait Psych Appearance: grossly normal and well kempt Mental Status: mental status grossly normal Affect: normal affect Speech and Movement: speech and movement normal Attitude: cooperative Thought Process: normal Thought Content: normal Judgment: judgment good Coding Level of Care Code Off vis,est,level 3 Diagnoses Incomplete O03.4 Miscarriage O03.9 Spotting in early O26.859 Pre-conception counseling Z31.69 Assessment and Plan Assessment and Plan (1) Incomplete : Status: Acute Plan: follow HCG until negative RTO for annual/PRN (2) Miscarriage: Status: Acute (3) Spotting in early : Status: Acute (4) Pre-conception counseling: Status: Acute Comment: day 21 progesterone. If normal, get SA. Unsure if wants to pursue yet. Orders: Orders hCG Titer Quant., Serum Today O03.4 - Incomplete spontaneous without complication, O03.9 - Complete or unspecified spontaneous without complication, O26.859 - Spotting complicating , unspecified trimester 02/25/25 1419 Date Wendy Patiño CNM Cosigner Signature: Date (if applicable) CC: Normal [facility] hCG Titer Quant., Serumon HCG QUANT. 32 mIU/mL High <9 non-preg [facility] Comment on above: Result Comment: Gest ational Age 0.2-1 Week: 5-50 mIU/mL 1-2 Weeks: 50-500 mIU/mL 2-3 Weeks: 100-5000 mIU/mL 3-4 Weeks: 500-10,000 mIU/mL 4-5 Weeks:1000-50,000 mIU/mL 5-6 Weeks: 10,000-100,000 mIU/mL 6-8 Weeks: 15,000-200,000 mIU/mL 2-3 Months:10,000-100,000 mIU/mL Performed By: #### L 700.8000 #### [facility] [address] [place], [address] Dry Food Products Mixer Office Visit Reporton 02-18-2025 Dry Food Products Mixer Office Visit Report [facility] [address], [address] [place] [address] OFFICE VISIT Date of Service: 02/18/25 MR#: [id number] Acct: [id number] Name: DANNA IBRAHIM TAMMIE Rep #: [id number] : 2000 Provider: Dr. Yoselin Tanner DO Age/Sex: 24/F Location: [facility] [place] Status: Signed Intake Vital Signs 10/17/24 14:46 02/18/25 13:05 02/18/25 13:07 Height 4 ft 11 in 4 ft 11 in 4 ft 11 in Weight: 109 lb 2 oz BMI 22.0 BP 138/84 H Intake Visit Reasons: Early OB, brown spotting, HCG Tuesday Instructional Coordinator Required: No Allergies No Known Allergies Allergy (Verified 02/18/25 13:05) Medications ???Medication ???Instructions ???Recorded ???Confirmed ???Type docosahexaenoic acid 200 mg mg PO 02/18/25 02/18/25 History capsule ( DHA) misoprostol 200 mcg tablet 600 mcg (3 x 200 mcg) vaginal ONCE 02/18/25 02/18/25 Rx (Cytotec) #3 tabs oxycodone-acetaminop hen 5 mg-325 1 tab PO Q4H PRN pain 3 days #7 02/18/25 Rx mg tablet (Percocet) tabs Is last menstrual period known: Yes Last Menstrual Period: 12/31/24 Post menopausal: No Patient : Yes : No PFSH Family History Grandfather Myocardial infarction Hypertension Grandmother CVA (cerebral vascular accident) Social History Smoking Status: Never smoker alcohol intake: current alcohol intake frequency: holidays/special occasions only substance use type: does not use what type of physical activity do you participate in: weight training frequency: 5-6 times per week HPI Early OB, brown spotting, HCG Tuesday Details: DANNA IBRAHIM is a 24 year old who presents for bleeding in early . Her lmp was 12/31/24. quants are 02/12/25; 1891, then 02/14/25: 2067, then 02/16/25; 1968. she states that last night she bled very heavily but today is better. Female Reproductive History Last Menstrual Period: 12/31/24 History 1 Elective abortions Hx Para 0 Spontaneous abortions Hx # Term Pregnancies Ectopic pregnancies Hx # Pregnancies Multiple births # of living children ROS Const ROS Unobtainable: All systems reviewed are unremarkable except as noted in H Resp Resp: Reports system reviewed and no additional complaints, except as documented; Denies cough GI GI: Reports as per HPI Psych Psych: Reports system reviewed and no additional complaints, except as documented Exam Const General: cooperative, healthy appearing, comfortable and no acute distress Resp Effort Inspection: normal respiratory effort Other: ultrasound shows a 6 week 1 day pole without heart tones and very little amount of fluid in a collapsed gestational sac. Skin General: no rashes or lesions noted Psych Appearance: grossly normal Speech and Movement: speech and movement normal Coding Level of Care Code Off vis,est,level 4 Diagnoses Incomplete O03.4 Assessment and Plan Assessment and Plan (1) Incomplete : Status: Acute Plan: patient was given options for treatment and chooses to try cytotec. bleeding precautions discussed rto in 1 week for follow up ultrasound. Medications: New misoprostol (Cytotec) 600 mcg (3 x 200 mcg) vaginal ONCE 3 tabs 0RF oxycodone-acetaminop hen 5-325 mg (Percocet) 1 TAB PO Q4H PRN 7 tabs 0RF pain 3 days O03.9 - Complete or unspecified spontaneous without complication 02/18/25 1343 Date Yoselin Lowe DO [facility] Signature: Date (if applicable) CC: Normal [facility] Serum human chorionic gonado tropin detection for pregnancyOrdered By: Summer Vivar on 02-16-2025 HCG ( test) Ql 1969 mIU/mL High <9 [facility] Comment on above: Gestational Age0.2-1 Week: 5-50 mIU/mL1-2 Weeks: 50-500 mIU/mL2-3 Weeks: 100-5000 mIU/mL3-4 Weeks: 500-10,000 mIU/mL4-5 Weeks:1000-50,000 mIU/mL5-6 Weeks: 10,000-100,000 mIU/mL6-8 Weeks: 15,000-200,000 mIU/mL2-3 Months:10,000-100,000 mIU/mL hCG Titer Quant., Serumon HCG QUANT. 1969 mIU/mL High <9 non-preg [facility] Comment on above: Result Comment: Gest ational Age 0.2-1 Week: 5-50 mIU/mL 1-2 Weeks: 50-500 mIU/mL 2-3 Weeks: 100-5000 mIU/mL 3-4 Weeks: 500-10,000 mIU/mL 4-5 Weeks:1000-50,000 mIU/mL 5-6 Weeks: 10,000-100,000 mIU/mL 6-8 Weeks: 15,000-200,000 mIU/mL 2-3 Months:10,000-100,000 mIU/mL Performed By: #### L 700.8000 #### [facility] [address] [place], [place], [id number] Serum human chorionic gonado tropin detection for pregnancyOrdered By: Summer Vivar on 02-14-2025 HCG ( test) Ql 2068 mIU/mL High <9 [facility] Comment on above: Gestational Age0.2-1 Week: 5-50 mIU/mL1-2 Weeks: 50-500 mIU/mL2-3 Weeks: 100-5000 mIU/mL3-4 Weeks: 500-10,000 mIU/mL4-5 Weeks:1000-50,000 mIU/mL5-6 Weeks: 10,000-100,000 mIU/mL6-8 Weeks: 15,000-200,000 mIU/mL2-3 Months:10,000-100,000 mIU/mL hCG Titer Quant., Serumon HCG QUANT. 2068 mIU/mL High <9 non-preg [facility] Comment on above: Result Comment: Gest ational Age 0.2-1 Week: 5-50 mIU/mL 1-2 Weeks: 50-500 mIU/mL 2-3 Weeks: 100-5000 mIU/mL 3-4 Weeks: 500-10,000 mIU/mL 4-5 Weeks:1000-50,000 mIU/mL 5-6 Weeks: 10,000-100,000 mIU/mL 6-8 Weeks: 15,000-200,000 mIU/mL 2-3 Months:10,000-100,000 mIU/mL Performed By: #### L 700.8000 #### [facility] [address] [place], [place], [id number] Serum human chorionic gonado tropin detection for pregnancyOrdered By: Unique Cuenca on 02-12-2025 HCG ( test) Ql 1892 mIU/mL High <9 [facility] Comment on above: Gestational Age0.2-1 Week: 5-50 mIU/mL1-2 Weeks: 50-500 mIU/mL2-3 Weeks: 100-5000 mIU/mL3-4 Weeks: 500-10,000 mIU/mL4-5 Weeks:1000-50,000 mIU/mL5-6 Weeks: 10,000-100,000 mIU/mL6-8 Weeks: 15,000-200,000 mIU/mL2-3 Months:10,000-100,000 mIU/mL hCG Titer Quant., Serumon HCG QUANT. 1892 mIU/mL High <9 non-preg [facility] Comment on above: Result Comment: Gest ational Age 0.2-1 Week: 5-50 mIU/mL 1-2 Weeks: 50-500 mIU/mL 2-3 Weeks: 100-5000 mIU/mL 3-4 Weeks: 500-10,000 mIU/mL 4-5 Weeks:1000-50,000 mIU/mL 5-6 Weeks: 10,000-100,000 mIU/mL 6-8 Weeks: 15,000-200,000 mIU/mL 2-3 Months:10,000-100,000 mIU/mL Performed By: #### L 700.8000 #### [facility] [address] [place], [place], [id number] PROGESTERONE 4317on 10-24-19 PROGESTERONE 11.0 ng/mL Normal . [facility] Comment on above: Order Comment: N Result Comment: Foll icular phase 0.1 - 0.9 Luteal phase 1.8 - 23.9 Ovulation phase 0.1 - 12.0 First trimester 11.0 - 44.3 Second trimester 25.4 - 83.3 Third trimester 58.7 - 214.0 Postmenopausal 0.0 - 0.1 Performed at: [address] [id number] Operations Manager/Coordinator: Jacob Rick PhD, Phone: [phone] Performed By: #### L 050.5247 #### [facility] [address] [place], [place], [id number] Dry Food Products Mixer Office Visit Reporton 10-17-2024 Dry Food Products Mixer Office Visit Report [facility] [address], [address] [place] [address] OFFICE VISIT Date of Service: 10/17/24 MR#: [id number] Acct: [id number] Name: DANNA IBRAHIM Rep #: [id number] : 2000 Provider: DANGELO walton Age/Sex: 24/F Location: [facility] Status: Signed Intake Vital Signs 10/05/23 09:45 10/17/24 14:42 10/17/24 14:46 Height 4 ft 11 in 4 ft 11 in 4 ft 11 in Weight: 109 lb 8 oz BMI 22.1 BP 140/82 H 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 Normal [facility] Cervical or vagninal specime n microscopic examination by cytology stain (reported asOrdered By: Unique Cuenca on 10-18-2022 Cytology report Cyto stain Doc (Cvx/Vag) Comment . [facility] Comment on above: The Pap smear is [...] rRNA EILEEN+probe Ql (Unsp spec) Negative Negative [facility] Laboratory - CytologyOrdered By: Unique Cuenca on 10-18-2022 Assistant Family Teacher Cyto stain Nom (Cvx/Vag) [ID] Comment . [facility] Comment on above: Sweetie Angeles nicole Ad Setter (ASCP) Laboratory - Microbiology an d Antimicrobial susceptibilityOrdered By: Unique Cuenca on 10-18-2022 N. gonorrhoeae DNA EILEEN+probe Ql (Unsp spec) Negative Negative [facility] Comment on above: Performed at: =G - L [facility] [address] [id number] Director: Wendy Trotter MD, Phone: [phone] Laboratory - Miscellaneous t estsOrdered By: Unique Cuenca on 10-18-2022 Service comment (Unsp spec) [Interp] Comment . [facility] Comment on above: This liquid based Th inPrep(R) pap test was screened withthe use of an image guided system. Service comment (Unsp spec) [Interp] . . [facility] No Panel InformationOrdered By: Unique Cuenca on 10-18-2022 Human Papillomavirus Screen Comment . [facility] Comment on above: The HPV DNA reflex c jacek were not met with this specimenresult therefore, no HPV testing was performed.Performed at: - [facility] [address] [id number] Director: Wendy Trotter MD, Phone: [phone] Pathology report final diagnosis Narrative Comment . [facility] Comment on above: NEGATIVE FOR INTRAEP ITHELIAL LESION OR MALIGNANCY.FUNGAL ORGANISMS MORPHOLOGICALLY CONSISTENT WITH WINSTON SPECIES AREPRESENT.CELLULAR CHANGES ASSOCIATED WITH INFLAMMATION ARE PRESENT. No Panel Informationon 10-18 POC Trichomonas (Rapid) Negative [facility] Vital Signs Date Time Vital Sign Value Performing Clinician Faci lity 02-18-2025 13:07-0400 Body height 149.[address] Ko Casey DO Work Phone: [facility] 02-18-2025 13:05-0400 Body mass index (BMI) [Ratio] 22 kg/m2 Dr. Ko Casey DO Work Phone: [facility] 02-18-2025 13:05-0400 Body weight 49.[address] Ko Casey DO Work Phone: [facility] 02-18-2025 13:05-0400 Diastolic blood pressure 84 mm[Hg] Dr. Ko Casey DO Work Phone: [facility] 02-18-2025 13:05-0400 Systolic blood pressure 138 mm[Hg] Dr. Ko Casey DO Work Phone: [facility] 10-17-2024 14:46-0400 Body height 149.[address] Ko Casey DO Work Phone: [facility] 10-17-2024 14:42-0400 Body mass index (BMI) [Ratio] 22.1 kg/m2 Dr. Ko Casey DO Work Phone: [facility] 10-17-2024 14:42-0400 Body weight 49.[address] Ko Casey DO Work Phone: [facility] 10-17-2024 14:42-0400 Diastolic blood pressure 82 mm[Hg] Dr. Ko Casey DO Work Phone: [facility] 10-17-2024 14:42-0400 Systolic blood pressure 140 mm[Hg] Dr. Ko Casey DO Work Phone: [facility] 10-18-2022 14:49-0400 Body height 149.[address] Ko Casey Work Phone: [facility] 10-18-2022 14:49-0400 Body mass index (BMI) [Ratio] 21.7 kg/m2 Dr. Ko Casey Work Phone: [facility] 10-18-2022 14:49-0400 Body weight 48.[address] Ko Casey Work Phone: [facility] 10-18-2022 14:49-0400 Diastolic blood pressure 80 mm[Hg] Dr. Ko Casey Work Phone: [facility] 10-18-2022 14:49-0400 Systolic blood pressure 138 mm[Hg] Dr. oK Casey Work Phone: [facility] Encounters Encounter Date Encounter Type Care Provider Facility Start: 02-25-2025 End: 02-25-2025 ambulatory Wendy Patiño [place] Start: 02-18-2025 End: 02-18-[address] Yoselin Lowe DO -[facility] Work Phone: Start: 02-18-2025 End: 02-18-[address] Ko Casey DO Work Phone: -[facility] Start: 02-16-[address] Summer Vivar MD -Laboratory Work Phone: Start: 02-16-2025 End: 02-16-2025 ambulatory Summer Vivar Facility:[facility] Start: 02-14-2025 End: 02-14-[address] Ko Casey DO Work Phone: -Laboratory Start: 02-14-2025 End: 02-14-2025 Patient encounter procedure Wendy Patiño CNM -Laboratory Work Phone: Start: 02-14-2025 End: 02-14-2025 ambulatory Ko Casey Facility:[facility] Start: 02-12-2025 End: 02-12-[address] Ko Casey DO Work Phone: -Laboratory Start: 02-12-2025 End: 02-12-2025 Patient encounter procedure Wendy Patiño CNM -Laboratory Work Phone: Start: 02-12-2025 End: 02-12-2025 ambulatory Wendy Haroon Facility:[facility] Start: 10-22-2024 End: 10-22-[address] Ko Casey DO Work Phone: [facility] Work Phone: Start: 10-22-2024 End: 10-22-2024 Patient encounter procedure Wendy Patiño CNM -Lab [facility] Start: 10-22-2024 End: 10-22-2024 ambulatory Wendy Patiño Facility:[facility] Start: 10-17-2024 End: 10-17-2024 Patient encounter procedure Unique Cuenca DOOR GLASS INSTALLER-C -[facility] Work Phone: Start: 10-17-2024 End: 10-17-2024 Patient encounter status Unique Bang DOOR GLASS INSTALLER-C [facility] Start: 10-17-2024 End: 10-17-[address] Ko Casey DO Work Phone: [facility] Work Phone: Start: 10-18-2022 End: 10-18-[address] Ko Casey Work Phone: [facility] Work Phone: Start: 10-18-2022 End: 10-18-[address] Ko Casey Work Phone: [facility] Procedures Date Procedure Procedure Detail Performing Clinician Start: 10-22-[address] Ko Casey DO Work Phone: Comment on above: Follicular phase 0.1 - 0.9 Luteal phase 1.8 - 23.9 Ovulation phase 0.1 - 12.0 First trimester 11.0 - 44.3 Second trimester 25.4 - 83.3 Third trimester 58.7 - 214.0 Postmenopausal 0.0 - 0.1Performed at: [facility] [place], [place] [id number] Director: Jacob Rick PhD, Phone: [phone] Plan of Treatment Date Care Activity Detail Author Start: 10-18-2022 Liquid based cervica l cytology screening [facility] Payers Date Payer Category Payer Unknown [id number] 2024 Private Health Insurance [id number] 2024 Self-pay [id number] Unknown [employer] [id number] Unknown [facility] [id number] Unknown [facility] [id number] Unknown [id number] Unknown [id number] Unknown [id number] Unknown [id number] Unknown [id number] Unknown [id number] Unknown [id number] Unknown [id number] Social History Date Type Detail Facility Start: [facility]22 [facility] Start: 2000 Sex Assigned At Female [facility] Start: 10-18-2022 [facility] smoked tobacco (finding) [facility] Sex Female [facility] Evaluation note 02-18-2025 Note Date & Type Note Facility 02-18-2025 Evaluation note Diagnosis Onset Date Resolution Incomplete acute Octob er 2024 1:00pm [facility] Work Phone: Progress note 02-18-2025 Note Date & Type Note Facility 02-18-2025 Progress note [facility] Evaluation note 10-17-2024 Note Date & Type Note Facility 10-17-2024 Evaluation note Diagnosis Onset Date Resolution Pre-conception counseling acute October 17, 2024 2:27pm Encounter for routine gynecological examination noneactive October 17, 2024 2:27pm [facility] Work Phone: Clinical Note 10-18-2022 Note Date & Type Note Facility 10-18-2022 Note [facility] Pap Smear Specimen Adequacy October 18, 2022 [...] logical examination noneactive Monilial vaginitis noneactiv e [facility] Work Phone: Evaluation note Note Date & Type Note Facility Evaluation note Diagnosis Onset Date Resolution Encounter for routine gynecological examination noneactive October 17, 2024 2:27pm [facility] Work Phone: Evaluation note Note Date & Type Note Facility Evaluation note Diagnosis Onset Date Resolution Incomplete acute Octob er 2024 1:00pm [facility] Work Phone: Progress note Note Date & Type Note Facility Progress note Note Date/Time February 18, 2025 1: 30pm [facility] [address] [place] [address], [address] [place] [address] OFFICE VISIT Date of Service: 02/18/25 MR#: [id number] Acct: [id number] Name: DANNA IBRAHIM Rep #: [id number] : 2000 Provider: Dr. Maty Lowe DO Age/Sex: 24/F [place] [facility] Status: Signed Intake Vital Signs 10/17/24 14:46 02/18/25 13:05 02/18/25 13:07 Height 4 ft 11 in 4 ft 11 in 4 ft 11 in Weight: 109 lb 2 oz BMI 22.0 BP 138/84 H Intake Visit Reasons: Early OB, brown spotting, HCG Tuesday Instructional Coordinator Required: No Allergies No Known Allergies Allergy (Verified 02/18/25 13:05) Medications ?Medication ?Instructions ?Recorded ?Confirmed ?Type docosahexaenoic acid 200 mg mg PO 02/18/25 02/18/25 Hi story capsule ( DHA) misoprostol 200 mcg tablet 600 mcg (3 x 200 mcg) vagin al ONCE 02/18/25 02/18/25 Rx (Cytotec) #3 tabs oxycodone-acetaminophen 5 mg-325 1 tab PO Q4H PRN pain 3 days #7 02/18/25 02/18/25 Rx mg tablet (Percocet) tabs Is last menstrual period known: Yes Last Menstrual Period: 12/31/24 Post menopausal: No Patient : Yes : No PFSH Family History Grandfather Myocardial infarction Hypertension Grandmother CVA (cerebral vascular accident) Social History Smoking Status: Never smoker alcohol intake: current alcohol intake frequency: holidays/special occasions only substance use type: does not use what type of physical activity do you participate in: weight training frequency: 5-6 times per week HPI Early OB, brown spotting, HCG Tuesday Details: DANNA IBRAHIM is a 24 year old who presents for bleeding in early . Her lmp was 12/31/24. quants are 02/12/25; 1892, then 02/14/25: 2067, then 02/16/25; 1968. she states that last night she bled very heavily but today is better. Female Reproductive History Last Menstrual Period: 12/31/24 History 1 Elective abortions Hx Para 0 Spontaneous abortions Hx # Term Pregnancies Ectopic pregnancies Hx # Pregnancies Multiple births # of living children ROS Const ROS Unobtainable: All systems reviewed & are unremarkable except as noted in H Resp Resp: Reports system reviewed and no additional complaints, except as documented; Denies cough GI GI: Reports as per HPI Psych Psych: Reports system reviewed and no additional complaints, except as documented Exam Const General: cooperative, healthy appearing, comfortable and no acute distress Resp Effort & Inspection: normal respiratory effort Other: ultrasound shows a 6 week 1 day pole without heart tones and very little amount of fluid in a collapsed gestational sac. Skin General: no rashes or lesions noted Psych Appearance: grossly normal Speech and Movement: speech and movement normal Coding Level of Care Code Off vis,est,level 4 Diagnoses Incomplete O03.4 Assessment and Plan Assessment and Plan (1) Incomplete : Status: Acute Plan: patient was given options for treatment and chooses to try cytotec. bleeding precautions discussed rto in 1 week for follow up ultrasound. Medications: New misoprostol (Cytotec) 600 mcg (3 x 200 mcg) vaginal ONCE 3 tabs 0RF oxycodone-acetaminophen 5-325 mg (Percocet) 1 TAB PO Q4H PRN 7 tabs 0RF pain 3 days O03.9 - Complete or unspecified spontaneous without complication 02/18/25 1343 <Electronically signed by Yoselin Mahoney DO> Date _ Yoselin Lowe DO Cosigner Signature: Date (if applicable) CC: ~ [facility] Work Phone: Reason for referral (narrative) Note Date & Type Note Facility Reason for referral (narrative) No reason for referral information available [facility] Work Phone: Chief Complaint and Reason for Visit Chief Complaint 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 Date 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, 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 2:27p m Reason for Visit Admit Date Pre-conception counseling October 17, 2024 2:27pm Encounter for routine gynecological exam ination October 17, 2024 2:27pm Chief Complaint 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) ENCOUNTER FOR SCREENING FOR INFECTIONS WITH A PRED Reason for Visit IUD (intrauterine de vice) in place Possible exposure to STD Encounter for routine gynecological examination Monilial vaginitis Reason for Visit Admit Date Encounter for routine gynecological exam ination October 17, 2024 2:27pm Chief Complaint Admit Date LABS February 12, 2025 6:23pm Spotting in early February 14, 2025 6:16pm Spotting in early February 16, 2025 6:30pm Early OB, brown spotting, HCG Tuesday O ct2024 1:00pm Reason for Visit Admit Date Incomplete February 18, 2025 1: 00pm Family History No Family History Records Found [...] Care Provider, Referr ing Provider Active Unique Cuecna DOOR GLASS INSTALLER, DOOR GLASS INSTALLER-C Attending Provider Active Team Status: Inactive Member Role Status Dates Dr. Ko Casey DO Primary Care Provider Active Unique [place] DOOR GLASS INSTALLER, DOOR GLASS INSTALLER-C Attending Provider, Referring Provider Active Team Status: Active Member Role Status Dates Dr. Ko Casey DO Primary Care Provider Active Team Status: Inactive Member Role Status Dates Dr. Ko Casey DO Primary Care Provider Active Start: October 17, 2024 End: October 17, 2024 Dr. Ko Casey DO Referring Provider Active Start: October 17, 2024 End: October 17, 2024 Unique Cuenca DOOR GLASS INSTALLER, DOOR GLASS INSTALLER-C Attending Provider Active Start: October 17, 2024 [...] October 22, 2024 End: October 22, 2024 Team Status: Active Member Role/Relationship Status Dates Dr. Ko Casey DO Primary care physician Active Team Status: Inactive Member Role/Relationship Status Dates Dr. Ko Casey DO Primary care physician Active Start: October 22, 2024 End: October 22, 2024 Wendy Patiño CNM Attending physician Active Start: October 22, 2024 End: October 22, 2024 Wendy Patiño CNM Referring Provider Active S tart: October 22, 2024 End: October 22, 2024 Team Status: Inactive Member Role/Relationship Status Dates Dr. Ko Casey DO Primary care physician Active Start: February 12, 2025 End: February 12, 2025 Wendy Patiño CNM Attending physician Active Start: February 12, 2025 End: February 12, 2025 Wendy Patiño CNM Referring Provider Active S tart: February 12, 2025 End: February 12, 2025 Team Status: Active Member Role/Relationship Status Dates Dr. Ko Casey DO Primary care physician Active Start: February 14, 2025 Wendy Patiño CNM Attending physician Active Start: February 14, 2025 Team Status: Active Member Role/Relationship Status Dates Dr. Ko Casey DO Primary care physician Active Start: February 16, 2025 Dr. Summer Vivar MD Attending physician Active Start: February 16, 2025 Team Status: Inactive Member Role/Relationship Status Dates Dr. Ko Casey DO Primary care physician Active Start: February 18, 2025 End: February 18, 2025 Dr. Ko Casey DO Referring Provider Active Start: February 18, 2025 End: February 18, 2025 Dr. Yoselin Lowe DO Attending physician Acti ve Start: February 18, 2025 End: February 18, 2025 Team Status: Inactive Member Role/Relationship Status Dates Dr. Ko Casey DO Primary care physician Active Start: February 12, 2025 End: February 12, 2025 Wendy Patiño CNM Attending physician Active Start: February 12, 2025 End: February 12, 2025 Wendy Patiño CNM Referring Provider Active S tart: February 12, 2025 End: February 12, 2025 Team Status: Inactive Member Role/Relationship Status Dates Dr. Ko Casey DO Primary care physician Active Start: February 14, 2025 End: February 14, 2025 Wendy Patiño CNM Attending physician Active Start: February 14, 2025 End: February 14, 2025 Team Status: Active Member Role/Relationship Status Dates Dr. Ko Casey DO Primary care physician Active Start: February 16, 2025 Dr. Summer Vivar MD Attending physician Active Start: February 16, 2025 Team Status: Inactive Member Role/Relationship Status Dates Dr. Ko Casey DO Primary care physician Active Start: February 18, 2025 End: February 18, 2025 Dr. Ko Casey , DO Referring Provider Active Start: February 18, 2025 End: February 18, 2025 Dr. Yoselin Lowe , Attending physician Acti ve Start: February 18, 2025 End: February 18, 2025 Goals (unrecognized section and content) Goals may be documented in a n alternate sectionGoals may be documented in an alternate sectionGoals may be documented in an alternate sectionGoals may be documented in an alternate sectionGoals may be documented in an alternate sectionGoals may be documented in an alternate section INFORMATION SOURCE (unrecogn ized section and content) DATE CREATED AUTHOR 02/26/2025 [facility] FOR RECORDS PERTAINING TO PATIENTS WHO ARE [...] BE BASED ON THE PRIMARY CLINICAL RECORDS. [employer] provides no warranty or guarantee of the accuracy or completeness of information in this document.
[2025-03-04 19:21] LABS: hCG Titer Quant., Serum 3 mIU/mL (<9 non-preg)
== END | disposition home or self-care (01) ==
PROVIDERS: PCP Family Medicine; Visit Provider Advanced Practice Midwife
DX: O03.4 Incomplete spontaneous abortion without complication (principal)
CPT/HCPCS: 36415; 84702